=== PATIENT | female | born 1995 | race African-American/Black ===

== ENCOUNTER 2021-10-25 20:14 | Emergency (ER) | payer OTHER, SELFPAY ==
--- NOTE | ~2021-10-25 | CT_ITS ---
EXAMINATION: CT brain wo con DATE: 10/25/2021 20:40 INDICATION: Head injury. TECHNIQUE: Computed tomography (CT) of the head was performed without intravenous contrast. The mA wa s adjusted according to patient size. Iterative reconstruction technique was employed. The dose-lengt h product was 605.33 mGy-cm. COMPARISON: None FINDINGS: There is no intracranial hemorrhage, acute infarction, or abnormal intracranial mass lesion . The ventricles are normal in size. The paranasal sinuses are clear. The orbits are normal. The mast oid air cells are normal. IMPRESSION: 1. Normal brain. Reviewed, dictated and finalized at location A. IMPRESSION: 1. Normal brain.
--- NOTE | ~2021-10-25 | CT_ITS ---
EXAMINATION: CT soft tissue neck wo con DATE: 10/25/2021 20:40 INDICATION: Head injury. Dysphagia. TECHNIQUE: Computed tomography (CT) of the neck was performed without intravenous contrast. Automated exposure control and iterative reconstruction technique were employed. The dose-length product was 4 41.45 mGy-cm. COMPARISON: None FINDINGS: Calcified right hilar lymph nodes are consistent with old granulomatous disease. The orbits are normal. The pharynx and airway are normal. The mastoid air cells are normal. The paranasal sinus es are clear. There is no fracture. IMPRESSION: 1. No etiology for the patient's symptoms. Reviewed, dictated and finalized at location A.
[2021-10-25 20:14] VITALS: BP 137/91; PULSE 87; RESP 18; TEMP 37.1; O2SAT 100
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
== END 2021-10-25 22:22 | disposition home or self-care (01) ==
PROVIDERS: Emergency Provider Family Medicine
DX: T74.11XA Adult physical abuse, confirmed, initial encounter (principal); S09.90XA Unspecified injury of head, initial encounter; S19.9XXA Unspecified injury of neck, initial encounter; Y04.2XXA Assault by strike against or bumped into by another person, initial encounter; Y07.03 Male partner, perpetrator of maltreatment and neglect
CPT/HCPCS: 70450; 70490; 99284

== ENCOUNTER 2022-08-02 08:03 | Emergency (ER) | payer OTHER, SELFPAY ==
[2022-08-02 08:06] VITALS: BP 120/73; PULSE 76; RESP 12; O2SAT 100
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
[2022-08-02] MEDS: ACETAMINOPHEN 325 MG TABLET 650 MG PO (08:18)
[2022-08-02 08:34] VITALS: BP 121/77; PULSE 86; RESP 20; TEMP 36.8; O2SAT 100
== END 2022-08-02 08:40 | disposition home or self-care (01) ==
LOC: ANHED 08:32
PROVIDERS: Emergency Provider Emergency Medicine; PCP Obstetrics & Gynecology
DX: O9A.212 Injury, poisoning and certain other consequences of external causes complicating pregnancy, second trimester (principal); R51.9 Headache, unspecified; V43.52XA Car driver injured in collision with other type car in traffic accident, initial encounter; Z3A.14 14 weeks gestation of pregnancy
CPT/HCPCS: 99282; A9270

== ENCOUNTER 2022-08-27 16:50 | Emergency (ER) | payer OTHER, SELFPAY ==
[2022-08-27 17:03] VITALS: BP 131/81; PULSE 85; RESP 18; TEMP 36.5; O2SAT 100
--- NOTE | 2022-08-27 17:07 | ECG_ITS ---
Measurements Intervals [place] Rate: 91 P: 60 SC: 130 QRS: 42 QRSD: 85 T: 31 QT: 357 QTc: 440 Interpretive Statements SINUS RHYTHM WITH SINUS ARRHYTHMIA POSSIBLE LEFT ATRIAL ENLARGEMENT [-0.1mV P WAVE IN V1/V2] NO PREVIOUS ECG AVAILABLE FOR COMPARISON Electronically Signed On 08-27-2022 18:27:23 CDT by Maria Isabel Davila M.D.
[2022-08-27 17:26] LABS: Basophils Percent Auto 0.3 % (0.2-1.2); Eosinophils Absolute Auto 0.1 K/mm3 (0-0.3); Hematocrit 32.9 % (37.0-47.0); Hemoglobin 11.1 g/dL (12.0-15.0); Immature Granulocyte Absolute 0.05 K/mm3 (0.00-0.031); Immature Granulocyte Percent A 0.7 % (0-0.5); Lymphocytes Absolute Auto 2.17 K/mm3 (0.9-3.2); Lymphocytes Percent Auto 28.4 % (18.3-44.2); Mean Corpuscular HGB Conc 33.7 g/dl (32-36); Mean Corpuscular Hemoglobin 30.8 pg (26-34); Mean Corpuscular Volume 91.4 fl (80-100); Mean Platelet Volume 9.9 fl (7.4-10.4); Monocytes Absolute Auto 0.6 K/mm3 (0.1-0.6); Monocytes Percent Auto 8.1 % (2.6-8.5); Neutrophils Absolute Auto 4.7 K/mm3 (1.3-6.7); Neutrophils Percent Auto 61.5 % (45.5-73.1); Platelet Count Result 245 k/mm3 (150-375); Red Cell Distribution Width 13.1 % (11.5-14.5); White Blood Count 7.6 K/mm3 (4.5-10.0)
[2022-08-27 17:38] LABS: Alanine Aminotransferase 14 U/L (6-35); Albumin Level 4.2 g/dL (3.5-5.1); Alkaline Phosphatase 80 U/L (38-126); Anion Gap 4 mmol/L (8-16); Aspartate Amino Transferase 22 U/L (14-36); Bilirubin,Total 0.2 mg/dL (0.2-1.3); Blood Urea Nitrogen 5 mg/dL (7-17); Carbon Dioxide 25 mmol/L (22-30); Chloride 105 mmol/L (98-107); Estimated CRCL calculation 141 ml/min; Estimated Glomerular Filt Rate > 60; Glucose 85 mg/dL (65-110); Potassium 3.9 mmol/L (3.4-5.0); Sodium 134 mmol/L (137-145)
[2022-08-27 19:15] VITALS: O2SAT 100
[2022-08-27 19:20] VITALS: BP 130/73; PULSE 73; RESP 22; O2SAT 100
[2022-08-27] MEDS: SODIUM CHLORIDE 0.9% IV 1,000 ML 999 ML IV CONT (19:46)
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
[2022-08-27 21:22] VITALS: BP 127/69; PULSE 80; RESP 20; O2SAT 100
== END 2022-08-27 21:27 | disposition home or self-care (01) ==
PROVIDERS: Emergency Provider Emergency Medicine; PCP Obstetrics & Gynecology
DX: O26.892 Other specified pregnancy related conditions, second trimester (principal); R55 Syncope and collapse; R94.31 Abnormal electrocardiogram [ECG] [EKG]; Z3A.19 19 weeks gestation of pregnancy
CPT/HCPCS: 36415; 80053; 85025; 93005; 96360; 99284; J7030